=== PATIENT | male | born 1965 | race Caucasian/White ===

== ENCOUNTER → 2020-07-17 | Outpatient (CLI) | payer OTHER ==
--- NOTE | 2020-07-18 07:13 | US ---
EXAMINATION TYPE: US scrotum with doppler. Grayscale and color Doppler Duplex imaging performed of t he scrotum. DATE OF EXAM: 07/17/2020 COMPARISON: NONE CLINICAL HISTORY: N50.812 Pain in left testicle. Left testicle pain. No injury. No swelling per pat ient. EXAM MEASUREMENTS: TESTICLES: Right Testicle: 3.9 x 4.3 x 3.3 cm Left Testicle: 5.2 x 4.5 x 3.1 cm EPIDIDYMIS HEAD: Right Epididymis: 1.3 x 1.4 x 0.9 cm Left Epididymis: 1.4 x 1.8 x 1.4 cm Doppler performed to assess for testicular vascularity; good bilateral color flow and waveforms are s een. There is no evidence of testicular torsion. Presence of hydroceles: bilateral Presence of varicoceles: bilateral Bilateral heterogenous testes visualized. Right epididymal cystic lesion in head = 0.6 x 0.7 x 0.5 cm . IMPRESSION: Ill-defined areas of decreased echogenicity left testicle and to a lesser extent the righ t testicle are nonspecific. Intratesticular lesions are difficult to exclude. Correlate clinically.
== END | disposition home or self-care (01) ==
LOC: RADUSWWP 16:37
PROVIDERS: ATTEND Family Medicine
DX: N50.89 Other specified disorders of the male genital organs (principal)
CPT/HCPCS: 76870; 93975